=== PATIENT | male | born 1995 | race Caucasian/White ===

== ENCOUNTER 2018-11-03 07:07 | Emergency (ER) | payer SELFPAY ==
[2018-11-03 07:30] VITALS: RESP 18
[2018-11-03 07:32] VITALS: BMI 23.4
[2018-11-03] MEDS ORDERED: Neomycin/Polymyxin/Hydrocort Otic Soln BOTTLE AD STA (07:32)
--- NOTE | 2018-11-03 07:57 | C.PDOC ---
History Of Present Illness 23 y/o male presents to the ER complaining of right ear pain which began last night.Patient states that the pain woke him up from his sleep. Patient reports that he had similar symptoms few months ago and he used ear drops.Denies having fever, chills, and other complaints at this time. Time Seen by Provider: 11/03/18 07:22 Chief Complaint (Nursing): ENT Problem History Per: Patient Onset/Duration Of Symptoms: Days Current Symptoms Are (Timing): Still Present Severity: Moderate Past Medical History Reviewed: Historical Data, Nursing Documentation, Vital Signs Vital Signs: Last Vital Signs Temp 97.9 F 11/03/18 07:16 Pulse 61 11/03/18 07:16 Resp 18 11/03/18 07:16 BP 115/72 11/03/18 07:16 Pulse Ox 100 11/03/18 07:16 - Medical History PMH: No Chronic Diseases Surgical History: No Surg Hx Family History: States: No Known Family Hx - Social History Hx Alcohol Use: No Hx Substance Use: No - Immunization History Hx Tetanus Toxoid Vaccination: No Hx Influenza Vaccination: No Hx Pneumococcal Vaccination: No Review Of Systems Except As Marked, All Systems Reviewed And Found Negative. Constitutional: Negative for: Fever, Chills ENT: Positive for: Ear Pain (right ear pain). Negative for: Ear Discharge Physical Exam - Physical Exam Appears: Non-toxic, No Acute Distress Skin: Normal Color, Warm, Dry Head: Atraumatic, Normacephalic Eye(s): bilateral: Normal Inspection Ear(s): Left: Normal, Right: Other (otitis externa, ear canal swelling) Nose: Normal Oral Mucosa: Moist Throat: Normal Neck: Supple Chest: Symmetrical Cardiovascular: Rhythm Regular Respiratory: Normal Breath Sounds, No Rales, No Rhonchi, No Wheezing Neurological/Psych: Oriented x3, Normal Speech ED Course And Treatment O2 Sat by Pulse Oximetry: 100 (RA) Pulse Ox Interpretation: Normal Progress Note: Treated with cortisporin drops, motrin and amoxil. On re- evaluation in no distrss Medical Decision Making Medical Decision Making: Plan: --Amoxicillin PO --Ibuprofen PO --Cortisporin AD Disposition Counseled Patient/Family Regarding: Diagnosis, Need For Followup, Rx Given - Disposition Referrals: [facility] [Outside] [facility] [Outside] Disposition: HOME/ ROUTINE Disposition Time: 09:15 Condition: STABLE Additional Instructions: Follow up at clin for further evaluation Ear drops 4 drops 4 times daily for 7 days Prescriptions: Amoxicillin [Amoxil 500 mg Cap] 500 mg PO Q8 #21 cap Neomycin/Polymyxin/Hydrocortis [Cortisporin Otic Susp] 3 drop TOP TID #1 bottle Instructions: Outer Ear Infection (DC) Forms: [employer] ([place] Islander) - POA Present On Arrival: None - Clinical Impression Clinical Impression: Otitis externa - PA / [employer] / Resident Statement MD/DO has reviewed & agrees with the documentation as recorded. - Scribe Statement The provider has reviewed the documentation as recorded by the Miladys Jesus Provider Attestation All medical record entries made by the Miladys were at my direction and personally dictated by me. I have reviewed the chart and agree that the record accurately reflects my personal performance of the history, physical exam, medical decision making, and the department course for this patient. I have also personally directed, reviewed, and agree with the discharge instructions and disposition.
--- NOTE | 2018-11-03 07:59 | C.PDOC ---
History Of Present Illness 23 y/o male presents to the ER complaining of right ear pain which began at night.Patient states that the pain woke him up from his sleep. Patient reports that he had similar symptoms few months ago and he used ear drops.Denies having fever, chills, and other complaints at this time. Time Seen by Provider: 11/03/18 07:22 Chief Complaint (Nursing): ENT Problem Past Medical History Vital Signs: Last Vital Signs Temp 97.9 F 11/03/18 07:16 Pulse 61 11/03/18 07:16 Resp 18 11/03/18 07:16 BP 115/72 11/03/18 07:16 Pulse Ox 100 11/03/18 07:16 - Social History Hx Alcohol Use: No Hx Substance Use: No - Immunization History Hx Tetanus Toxoid Vaccination: No Hx Influenza Vaccination: No Hx Pneumococcal Vaccination: No ED Course And Treatment O2 Sat by Pulse Oximetry: 100 Disposition Counseled Patient/Family Regarding: Diagnosis, Need For Followup, Rx Given - Disposition Referrals: [facility] [Outside] [facility] [employer] [facility] [Outside] Disposition: HOME/ ROUTINE Disposition Time: 08:00 Condition: STABLE Additional Instructions: Follow up at clin for further evaluation Ear drops 4 drops 4 times daily for 7 days Prescriptions: Amoxicillin [Amoxil 500 mg Cap] 500 mg PO Q8 #21 cap Neomycin/Polymyxin/Hydrocortis [Cortisporin Otic Susp] 3 drop TOP TID #1 bottle Instructions: Outer Ear Infection (DC) Forms: [employer] (Indian) - POA Present On Arrival: None
[2018-11-03 08:34] VITALS: BP 125/83; PULSE 69; TEMP 98.8
[2018-11-03 10:20] VITALS: O2SAT 100
== END 2018-11-03 08:34 | disposition home or self-care (01) ==
LOC: C.ER 07:07
DX: H60.91 Unspecified otitis externa, right ear (principal)